=== PATIENT | female | born 1945 | race Caucasian/White ===

== ENCOUNTER 2017-04-17 10:49 | Day surgery (SDC) | payer MEDICARE, BC ==
[2017-04-17] MEDS ORDERED: SCOPOLAMINE PATCH TOP ONE (11:06)
[2017-04-17] MEDS ORDERED: LACTATED RINGERS 1,000 ML IV ONE (11:25)
[2017-04-17] MEDS ORDERED: fentaNYL 100 MCG/2 ML VIAL IVP ONE (12:32)
[2017-04-17] MEDS ORDERED: MIDAZOLAM 2 MG/2 ML VIAL IVP ONE (12:32)
[2017-04-17 13:49] VITALS: BP 110/64
== END 2017-04-17 10:50 | disposition home or self-care (01) ==
LOC: SDS 10:49
PROVIDERS: ATTEND Surgery
PROC: 0DJD8ZZ Inspection of Lower Intestinal Tract, Via Natural or Artificial Opening Endoscopic (ICD-10-PCS; principal; 2017-04-17 12:00)
DX: Z12.11 Encounter for screening for malignant neoplasm of colon (principal); K64.8 Other hemorrhoids; E78.5 Hyperlipidemia, unspecified; Z79.82 Long term (current) use of aspirin
CPT/HCPCS: G0121; J3490; J7120

== ENCOUNTER 2017-04-19 15:10 | Emergency (ER) | payer MEDICARE, BC ==
[2017-04-19 15:20] VITALS: BP 126/65
--- NOTE | 2017-04-19 15:51 | XRAY Report ---
EXAM: RIGHT WRIST RADIOGRAPHY EXAM DATE: 04/19/2017 03:25 PM. CLINICAL HISTORY: Injury. COMPARISON: None. TECHNIQUE: 4 views. FINDINGS: Bones: Comminuted intra-articular distal radius fracture with impaction and significant dorsal angula tion distal fragment measuring nearly 50 degrees. Probable nondisplaced ulnar styloid fracture. No ad ditional fracture. Mildly limited scaphoid view. Joints: Normal. No subluxations. Soft Tissues: Carpal alignment is preserved. No dislocation. IMPRESSION: Comminuted intra-articular distal radius fracture with moderate to severe angulation. Pro bable ulnar styloid fracture. [facility] Referring Provider Line: [phone] SITE ID: [id number]
[2017-04-19] MEDS ORDERED: BUPIVACAINE 0.5%-EPI 1:200000 PF 30 ML VIAL SUBQ ONE (16:15)
--- NOTE | 2017-04-19 16:17 | ED Physician Documentation ---
PD HPI UPPER EXT INJURY - Stated complaint Stated Complaint: RT ARM PX - Chief complaint Chief Complaint: Ext Problem - History obtained from History obtained from: Patient - History of Present Illness Type of injury: Other (Slip and fall on the ice this morning landing on her rear end with her arms behind her and injuring only her right wrist. No head or neck injury.) Review of Systems Constitutional: reports: Reviewed and negative Cardiac: reports: Reviewed and negative Respiratory: reports: Reviewed and negative PD PAST MEDICAL HISTORY - Past Medical History Past Medical History: Yes Cardiovascular: High cholesterol Respiratory: None Endocrine/Autoimmune: HyPOthyroidism GI: None : None HEENT: Chronic vision loss Psych: None Musculoskeletal: None Derm: None - Past Surgical History Past Surgical History: Yes Ortho: Other Neuro: Other - Present Medications Home Medications: Ambulatory Orders Medication Instructions Recorded Confirmed Lovastatin 40 mg PO DAILY 04/16/17 04/19/17 - Allergies Allergies/Adverse Reactions: Allergies Allergy/AdvReac Type Severity Reaction Status Date / Time No Known Drug Allergies Allergy Verified 04/19/17 15:20 - Social History Does the pt smoke?: No Smoking Status: Never smoker Does the pt drink ETOH?: Yes Does the pt have substance abuse?: No - Immunizations Immunizations are current?: Yes - POLST Patient has POLST: No PD ED PE NORMAL - Vitals Vital signs reviewed: Yes - General General: Alert and oriented X 3, No acute distress - Neck Neck: Supple, no meningeal sign, No bony TTP - Extremities Extremities: Other (Tender to R wrist with dorsal deformity. NVI in hand. Elbow NTTTP.) - Neuro Neuro: Alert and oriented X 3, Normal speech Results - Vitals Vitals: Vital Signs - 24 hr 04/19/17 15:15 Temperature 37.4 C Heart Rate 55 L Respiratory 18 Rate Blood Pressure 126/65 O2 Saturation 99 Oxygen O2 Source Room air - Rads (name of study) R wrist 4v Radiology: EMP read contemporaneously (Comminuted intra-articular distal radius fracture with moderate to severe angulation and a probable ulnar styloid fracture.) Procedures - Splint (location) R wrist Splint applied by: Physician Type of splint: Fiberglass, Long arm, Sugar tong Other: Patient tolerated well, No complications, Neurovascular intact - Reduction Body part reduced: Right, Wrist Fracture or dislocation: Fracture dislocation Anesthesia: Hematoma block, Lidocaine (enter cc) (8ml) Reduction aftercare: NV intact, Alignment improved, Splint applied, Sling Departure - Departure Disposition: 01 Home, Self Care Clinical Impression: Colles' fracture Qualifiers: Encounter type: initial encounter Fracture type: closed Laterality: right Qualified Code(s): S52.531A - Colles' fracture of right radius, initial encounter for closed fracture Condition: Good Record reviewed to determine appropriate education?: Yes Instructions: ED Fx Forearm Radius Ulna Redu Requ Follow-Up: [facility] [Provider Group] - Within 1 week Discharge Date/Time: 04/19/17 17:39
[2017-04-19] MEDS ORDERED: LIDOCAINE 1%-EPI 1:100000 20 ML MDV ONE (16:32)
--- NOTE | 2017-04-19 17:27 | XRAY Report ---
EXAM: RIGHT FOREARM RADIOGRAPHY EXAM DATE: 04/19/2017 05:16 PM. CLINICAL HISTORY: Post reduction. COMPARISON: Send a wrist. TECHNIQUE: 2 views. FINDINGS: Cast obscures detail. Impaction of the distal radius fracture has improved. Moderate to severe angula tion has slightly improved, now measuring approximately 34 degrees. Normal elbow joint alignment. IMPRESSION: Improved impaction of the distal radius fracture with slightly improved angulation althou gh still moderate. [facility] Referring Provider Line: [phone] SITE ID: [id number]
== END 2017-04-19 17:39 | disposition home or self-care (01) ==
LOC: ED 15:10
DX: S52.531A Colles' fracture of right radius, initial encounter for closed fracture (principal); W00.0XXA Fall on same level due to ice and snow, initial encounter; E03.9 Hypothyroidism, unspecified; E78.00 Pure hypercholesterolemia, unspecified
CPT/HCPCS: 25605; 99283

== ENCOUNTER 2017-04-26 07:12 | Day surgery (SDC) | payer MEDICARE, BC ==
[2017-04-26] MEDS ORDERED: LACTATED RINGERS 1,000 ML IV ONE (07:18)
[2017-04-26] MEDS ORDERED: ceFAZolin 2 GM/50 ML 2 GM/50 ML BAG IV ONE (07:25)
[2017-04-26] MEDS ORDERED: ONDANSETRON 4 MG/2 ML VIAL ONE (07:49)
[2017-04-26] MEDS: SCOPOLAMINE PATCH TOP ONE ×2 (07:51→07:52)
[2017-04-26] MEDS ORDERED: CELECOXIB 100 MG CAPSULE PO ONE (08:29)
[2017-04-26] MEDS ORDERED: BUPIVACAINE 0.25% PF 30 ML VIAL SUBQ ONE ×2 (09:59→10:48)
[2017-04-26] MEDS ORDERED: LIDOCAINE 1% 50 ML MDV SUBQ ONE ×2 (09:59→10:48)
[2017-04-26] MEDS ORDERED: ROCURONIUM 50 MG/5 ML VIAL IVP ONE (10:48)
[2017-04-26] MEDS ORDERED: LIDOCAINE-MPF 2% 5 ML VIAL IM ONE (10:48)
[2017-04-26] MEDS ORDERED: fentaNYL 100 MCG/2 ML VIAL IVP ONE (10:48)
[2017-04-26] MEDS ORDERED: PROPOFOL 200 MG/20 ML VIAL IVP ONE (10:48)
[2017-04-26] MEDS ORDERED: ACETAMINOPHEN 1,000 MG/100 ML 100 ML IV ONE (10:48)
[2017-04-26] MEDS ORDERED: ePHEDrine 50 MG/ML AMP IVP ONE (10:48)
[2017-04-26] MEDS ORDERED: KETOROLAC 30 MG/ML VIAL IVP ONE (10:48)
[2017-04-26 13:10] VITALS: BP 135/60
--- NOTE | 2017-04-26 18:17 | OPERATIVE REPORT ---
DATE OF SERVICE: 04/26/2017 Physician: Yumiko Love MD PREOPERATIVE DIAGNOSIS: Comminuted intra-articular and displaced right distal radius fracture. POSTOPERATIVE DIAGNOSIS: Comminuted intraarticular and displaced right distal radius fracture. PROCEDURE PERFORMED: Open reduction internal fixation of right distal radius fracture. OPERATING SURGEON: Yumiko Love MD ANESTHESIA: General. INDICATIONS FOR PROCEDURE: Ludmila is a 71-year-old female status post a ground level fall causing a comminuted and an unstable closed intra-articular right distal radial fracture. A closed reduction was done in the emergency room, which was unsatisfactory, with the fracture falling back into its same angulated and comminuted, shortened position. Recommendation in clinic was that the patient undergo operative treatment with open reduction internal fixation. FINDINGS AT SURGERY: The patient's fracture was indeed found to be very unstable and highly comminuted with a large void in the metaphyseal area and dorsal comminution. The patient's bone density was very poor. DESCRIPTION OF OPERATIVE PROCEDURE: The patient was taken to the operating room, given a general anesthetic. She was positioned supine. A tourniquet was placed on her arm. Her forearm and hand were sterilely prepped and draped in standard fashion. Under tourniquet control at 200 mmHg, a 3-1/2 inch incision was made on the radial volar aspect of the wrist directly superficial to the flexor carpi radialis tendon. The incision was deepened down to that tendon sheath. The tendon was retracted and the incision deepened below that down to the volar capsule where there was a rent in the capsule from the fracture and hemorrhagic tissues. The pronator quadratus was reflected back, exposing the fracture line and the distal radius. The flexor carpi radialis was divided at the fracture level to allow exposure of the radial styloid and for reduction. The reduction was difficult to obtain. Ultimately, a volar DVR plate was applied with a screw in the distal radius in the oblong hole and positioned so that appropriate screws and smooth pegs could be applied to support a reduction. With this plate in place, it allowed an anatomic repositioning of fragments to the plate and with constant pressure on the dorsal radius there was some molding and improved reduction that was gained, and appropriate screws and smooth pegs were then inserted distally with the dorsal cortex of the radius essentially nonsupportive and comminuted; the best it could be achieved were limited screws and pegs. The fixation gain was a locking construct that seemed stable and the wrist was ranged in surgery in flexion, extension multiple times to ensure that the construct was stable enough and it passed the test. The wrist incision was irrigated thoroughly and the tourniquet was deflated. There was minimal bleeding. Closure was with 0 Vicryl and 2-0 Vicryl interrupted in the substance of the pronator quadratus, 2-0 Vicryl closure of subcutaneous tissue and Monocryl 3-0 closure of skin. Sterile dressings were applied and prior to sterile dressings the intra-articular area was infiltrated with Marcaine and lidocaine. After this, a well-padded sugar-tong splint was applied and the patient was taken to the recovery room in stable condition. ESTIMATED BLOOD LOSS: Minimal. COMPLICATIONS: None. SPONGE AND NEEDLE COUNTS: Correct. TD: 04/26/2017 18:15
== END 2017-04-26 07:13 | disposition home or self-care (01) ==
LOC: SDS 07:12
PROVIDERS: ATTEND Orthopaedic Surgery
PROC: 0PSH04Z Reposition Right Radius with Internal Fixation Device, Open Approach (ICD-10-PCS; principal; 2017-04-26 08:15)
DX: S52.571A Other intraarticular fracture of lower end of right radius, initial encounter for closed fracture (principal); W18.30XA Fall on same level, unspecified, initial encounter; E78.5 Hyperlipidemia, unspecified; E03.9 Hypothyroidism, unspecified; Z79.82 Long term (current) use of aspirin
CPT/HCPCS: 25609; A9270; C1713; J0131; J0690; J3490; J7120

== ENCOUNTER 2018-03-19 13:59 | Outpatient (CLI) | payer MEDICARE, BC ==
--- NOTE | 2018-03-20 09:50 | DEXA Report ---
Reason: ENCTR FOR SREENING FOR OSTEOPOROSIS Procedure Date: 03/19/2018 Accession Number: [id number] / [id number] Procedure: DEX - Dexa Spine and/or Hip CPT Code: FULL RESULT: EXAM: Dexa Spine and/or Hip DATE: 03/19/2018 2:45 PM CLINICAL HISTORY: ENCTR FOR SREENING FOR OSTEOPOROSIS TECHNIQUE: Dual energy x-ray absorptiometry (DXA) was performed on a [employer] System. Regions measured are the AP Spine, femoral neck, and if needed forearm. COMPARISON: None. In accordance with the International Society for Clinical Densitometry (ISCD) guidelines, data from previous exams may be reanalyzed using current recommendations and techniques. This is done to allow a more accurate basis for comparison with the current study. FINDINGS: The data for the lumbar spine is as follows: BMD (g/cm/cm) T-SCORE Z-SCORE REGION L1 0.699 -3.6 -1.2 L2 0.746 -3.8 -1.4 L3 0.767 -3.6 -1.2 L4 0.798 -3.4 -0.9 TOTAL 0.756 -3.5 -1.1 NOTE: All evaluable vertebrae are used for classification The data for the hip is as follows: BMD (g/cm/cm) T-SCORE Z-SCORE REGION Neck 0.757 -2.0 0.2 TOTAL 0.674 -2.7 -0.6 NOTE: The femoral neck or total proximal femur, whichever is lowest, is used for classification. IMPRESSION: THE WHO CLASSIFICATION BASED ON THE INTERNATIONAL REFERENCE STANDARD IS OSTEOPOROSIS. THE FRACTURE RISK IS HIGH. RECOMMENDATION: Patients with diagnosis of osteoporosis or osteopenia should have regular bone mineral density assessment. For those eligible for Medicare, routine testing is allowed once every 2 years. Testing frequency can be increased for patients who have rapidly progressing disease or for those who are receiving medical therapy to restore bone mass. COMMENT: World Health Organization (WHO) definitions for osteoporosis and osteopenia: NORMAL BMD: T-score at -1.0 or higher, fracture risk is low OSTEOPENIA BMD: T-score between -1.0 and -2.5, fracture risk is increased. OSTEOPOROSIS BMD: T-score at -2.5 or lower, fracture risk is high. National Osteoporosis Foundation recommends: 1. Obtain adequate dietary calcium (at least 1200 mg per day) and vitamin D (400-800 international units per day). 2. Participate, as appropriate, in regular weightbearing and muscle-strengthening exercise. 3. Avoid tobacco use and reduce alcohol and caffeine intake. 4. For more detailed information see the website at www.NOF.org.
== END 2018-03-19 14:00 | disposition home or self-care (01) ==
LOC: DI 13:59
PROVIDERS: ATTEND Internal Medicine
DX: M81.0 Age-related osteoporosis without current pathological fracture (principal)
CPT/HCPCS: 77080

== ENCOUNTER 2018-04-29 14:15 | Outpatient (CLI) | payer MEDICARE, BC ==
--- NOTE | 2018-04-30 08:48 | Mammography Report ---
Reason: ROUTINE MAMMO Procedure Date: 04/29/2018 Accession Number: [id number] / [id number] Procedure: ADDIE - Screening Mammo w/Rodolfo CPT Code: FULL RESULT: EXAM: Screening Mammo w/Rodolfo DATE: 04/29/2018 2:39 PM CLINICAL HISTORY: Screening encounter. Self reported history of 30 years of hormone therapy. TECHNIQUE: Bilateral CC and MLO views were obtained. COMPARISON: 11/12/2015 through 01/09/2012. FINDINGS: The breasts demonstrate heterogeneously dense fibroglandular parenchyma bilaterally. No suspicious masses, clustered microcalcifications, or regions of architectural distortion are identified. IMPRESSION: Negative examination RECOMMENDATION: Routine annual screening unless otherwise clinically indicated. BIRADS CATEGORY 1: Negative STANDARD QUALIFYING STATEMENTS: 1. This examination was not reviewed with the aid of Computer-Aided Detection (CAD). 2. A negative or benign imaging report should not delay biopsy if clinically suspicious findings are present. Consider surgical consultation if warrented. More than 5% of cancers are not identified by imaging. 3. Dense breasts may obscure an underlying neoplasm. 4. This examination was reviewed with the aid of 3D breast imaging (tomosynthesis).
== END 2018-04-29 14:16 | disposition home or self-care (01) ==
LOC: DI 14:15
PROVIDERS: ATTEND Internal Medicine
DX: Z12.31 Encounter for screening mammogram for malignant neoplasm of breast (principal)
CPT/HCPCS: 77063; 77067

== ENCOUNTER 2019-05-10 14:52 | Emergency (ER) | payer MEDICARE, BC ==
--- NOTE | 2019-05-10 14:59 | ED Physician Documentation ---
PD HPI UPPER EXT INJURY - Stated complaint Stated Complaint: LT THUMB LAC - History obtained from History obtained from: Patient - History of Present Illness Location: Left, Finger (dorsumof thumb) Type of injury: Laceration (She is cutting banana with the knife and it slipped and she lacerated the dorsum of her left thumb. No numbness or weakness. She has had ongoing bleeding however despite direct pressure.) Where injury occurred: Home Timing - onset: Today Timing - details: Abrupt onset, Still present (some bleeding still) Improved by: Rest Worsened by: Moving, Palpating Review of Systems Neurologic: denies: Focal weakness, Numbness PD PAST MEDICAL HISTORY - Past Medical History Cardiovascular: High cholesterol, Murmur Respiratory: None Endocrine/Autoimmune: HyPOthyroidism GI: None : None HEENT: Chronic vision loss, Chronic hearing loss Psych: None Musculoskeletal: Osteoporosis, Osteopenia Derm: None - Past Surgical History Past Surgical History: Yes General: Appendectomy Ortho: Other Neuro: Other HEENT: Tonsil/Adenoidectomy - Present Medications Home Medications: Ambulatory Orders Medication Instructions Recorded Confirmed Lovastatin 40 mg PO DAILY 04/16/17 04/26/17 Aspirin [Aspirin EC] 81 mg PO DAILY 04/25/17 04/26/17 Calcium/Magnesium/Vitamin D3 2 each PO DAILY 04/25/17 04/26/17 [Gordy-Mag Complex 300-150 mg Tab] Cholecalciferol (Vitamin D3) 1,000 unit PO DAILY PM 04/25/17 04/26/17 [Vitamin D3] EPINEPHrine [Epipen 2-Iain] 0.3 mg IJ ONCE 04/25/17 04/25/17 L. Acidophilus/L. Rhamnosus 1 each PO DAILY 04/25/17 04/26/17 [Probiotic 15 Billion Cell Cap] Multivitamin [Multiple Vitamins] 1 each PO DAILY 04/25/17 04/26/17 Amoxicillin Chew [Amoxicillin] 125 mg PO BID 04/26/17 04/26/17 - Allergies Allergies/Adverse Reactions: Allergies Allergy/AdvReac Type Severity Reaction Status Date / Time No Known Drug Allergies Allergy Verified 05/10/19 15:01 - Social History Does the pt smoke?: No Smoking Status: Never smoker Does the pt drink ETOH?: Yes Does the pt have substance abuse?: No - Immunizations Immunizations are current?: Yes - POLST Patient has POLST: No PD ED PE NORMAL - Vitals Vital signs reviewed: Yes - General General: Alert and oriented X 3, No acute distress, Well developed/nourished - Derm Derm: Normal color, Warm and dry - Extremities Extremities: Other (Dorsum left thumb with a longitudinal laceration 1-1/2 cm over the IP joint. It does not involve the nailbed. There is no involvement of the tendon. She has good full extension against resistance and normal sensation at the tip. With flexion it does open and there is still some mild ongoing bleeding. No foreign bodies noted.) - Neuro Neuro: No motor deficit, No sensory deficit Results - Vitals Vitals: Vital Signs - 24 hr 05/10/19 15:01 Temperature 36.9 C Heart Rate 63 Respiratory 16 Rate Blood Pressure 123/56 L O2 Saturation 100 Oxygen O2 Source Room air Procedures - Laceration (location) left thumb Length in cm: 1.5 Wound type: Linear, Into subcut fat, Clean Neurovascular status: Sensory intact, Motor intact, Vascular intact Tendon involvement: Tendon intact. No: Tendon Injury Anesthesia: Lidocaine 1% Wound Preparation: Irrigated copiously NS, Wound explored, To the base. No: FB identified Skin layer closure: Nylon, Running, Size #-0 - enter number (5), Sutures - enter # (6) Other: Patient tolerated well, No complications, Neurovascular intact, Dressing applied, Tetanus booster given. No: Tetanus UTD Complexity: Simple PD MEDICAL DECISION MAKING - ED course Complexity details: considered differential (Laceration over the IP joint dorsal ly of the thumb and it does open with range of motion. Discussed attempting Dermabond and Steri-Strips and decreased motion versus sutures. It still has a little bit of bleeding. We opted on sutures.), d/w patient Departure - Departure Disposition: 01 Home, Self Care Clinical Impression: Laceration of thumb Qualifiers: Encounter type: initial encounter Damage to nail status: without damage Foreign body presence: without foreign body Laterality: left Qualified Code(s): S61.012A - Laceration without foreign body of left thumb without damage to nail, initial encounter Condition: Stable Record reviewed to determine appropriate education?: Yes Instructions: ED Laceration Hand Follow-Up: DEMAR KELLY ARNP [Primary Care Provider] - Comments: It is okay to wash and shower. Clean off the wound twice a day with soap and water, or peroxide and water. Apply some antibiotic ointment to it to keep it moist. Also to watch for signs of infection such as purulence, redness or increasing pain. Return to your primary care or the ER at the specified time for suture removal. Suture removal 8 to 10 days Discharge Date/Time: 05/10/19 15:41
[2019-05-10 15:03] VITALS: BP 123/56
[2019-05-10] MEDS ORDERED: BACITRACIN ZINC OINT 1 PACKET TOP STA (15:26)
[2019-05-10] MEDS ORDERED: TETANUS/DIPHTHERIA/PERTUSSIS 0.5 ML SYRINGE IM ONE (15:26)
== END 2019-05-10 15:41 | disposition home or self-care (01) ==
LOC: ED 14:52
DX: S61.012A Laceration without foreign body of left thumb without damage to nail, initial encounter (principal); W26.0XXA Contact with knife, initial encounter; Y93.G1 Activity, food preparation and clean up; Y92.009 Unspecified place in unspecified non-institutional (private) residence as the place of occurrence of the external cause
CPT/HCPCS: 12001; 90471; 90715; 99283; A9270

== ENCOUNTER 2020-05-14 09:48 | Outpatient (CLI) | payer MEDICARE, BC ==
--- NOTE | 2020-05-14 13:16 | XRAY Report ---
PROCEDURE: Hand 3 View BILAT INDICATIONS: OSTEOPOROSIS, PAIN OF HANDS, ARTHRITIS OF KNEES TECHNIQUE: 3 views of the hand(s) acquired. COMPARISON: None FINDINGS: Bones: No fractures or dislocations. No suspicious bony lesions. Distal left radial ORIF is presen t. Bones are relatively well mineralized. Right: There is subluxation flexion deformity at the fifth MCP and more severe PIP joints. Mild IP de generative narrowing is present in these areas. In addition, there is moderate first CMC degenerative narrowing. Moderate to severe radiocarpal narrowing and scattered minimal to mild IP narrowing is pr esent. No distinct erosions. Left: Mild first CMC as well as moderate radiocarpal narrowing is present. There are minimal scattere d IP areas of degenerative narrowing. No distinct erosions. Soft tissues: No suspicious soft tissue calcifications. IMPRESSION: 1. Flexion deformities most suggestive of arthritic change in the left fifth digit as above. 2. Bilateral scattered IP and first CMC arthritic narrowing suggestive osteoarthritis. Reviewed by: Lorie Mar MD on 05/14/2020 1:15 PM PDT Approved by: Lorie Mar MD on 05/14/2020 1:15 PM PDT Station ID: [id number]
--- NOTE | 2020-05-14 13:24 | XRAY Report ---
PROCEDURE: Knee 3 View BILAT INDICATIONS: OSTEOPOROSIS, PAIN OF HANDS, ARTHRITIS OF KNEES TECHNIQUE: 3 views of the bilateral knee(s) were acquired. COMPARISON: None. FINDINGS: Bones: No fractures or dislocations. There are serpiginous area of sclerosis within the distal right femur. No priors are available for comparison. There is bilateral mild to moderate medial as well as lateral, lateral greater than medial, compartme nt narrowing. Mild to moderate patellofemoral compartment narrowing is present. There are no erosions . Minimal periarticular osteophytes are present. Soft tissues: Mild bilateral effusions. No suspicious soft tissue calcifications. IMPRESSION: 1. Mild to moderate tricompartmental degenerative change as above suggestive of arthritis. 2. Serpiginous calcifications within the distal right femur suggestive of enchondroma. However, no pr iors are available for comparison. If this area demonstrates pain or other clinical concern, further evaluation with MRI is recommended. Otherwise, 6 month interval x-ray follow-up is recommended. Reviewed by: Lorie Mar MD on 05/14/2020 1:22 PM PDT Approved by: Lorie Mar MD on 05/14/2020 1:22 PM PDT Station ID: [id number]
--- NOTE | 2020-05-14 13:27 | DEXA Report ---
PROCEDURE: Dexa Spine and/or Hip INDICATIONS: OSTEOPOROSIS TECHNIQUE: Dual energy x-ray absorptiometry (DXA) was performed on a [employer] System. Regions measur ed are the AP Spine, femoral neck, and if needed forearm. COMPARISON: None. FINDINGS: Lumbar Spine: Bone Mineral Density 0.705 g/cm/cm,T score -4.0, osteoporosis Left Hip: Bone Mineral Density 0.719 g/cm/cm,T score -2.3, severe osteopenia Left Femoral Neck: Bone Mineral Density 0.766 g/cm/cm, T score -2.0, moderate to severe osteopenia (T score greater or equal to -1.0: NORMAL) (T score from -1.1 to -2.4: OSTEOPENIA) (T score less than or equal to -2.5 to: OSTEOPOROSIS) Impression: Severe osteoporosis within the lumbar spine with moderate to severe osteopenia in the lef t hip and femoral neck. Patients with diagnosis of osteoporosis or osteopenia should have regular bone mineral density assess ment. For those eligible for Medicare, routine testing is allowed once every 2 years. Testing frequ ency can be increased for patients who have rapidly progressing disease or for those who are receivin g medical therapy to restore bone mass. Reviewed by: Lorie Mar MD on 05/14/2020 1:25 PM PDT Approved by: Lorie Mar MD on 05/14/2020 1:25 PM PDT Station ID: [id number]
== END 2020-05-14 09:49 | disposition home or self-care (01) ==
LOC: DI 09:48
PROVIDERS: ATTEND Nurse Practitioner Family
DX: M81.0 Age-related osteoporosis without current pathological fracture (principal); M17.0 Bilateral primary osteoarthritis of knee; M79.641 Pain in right hand; M79.642 Pain in left hand; M19.042 Primary osteoarthritis, left hand; M19.041 Primary osteoarthritis, right hand

== ENCOUNTER 2020-06-01 13:16 | Outpatient (CLI) | payer MEDICARE, BC ==
--- NOTE | 2020-06-01 16:54 | Ultrasound Report ---
PROCEDURE: Pelvic w/Transvaginal INDICATIONS: ABD PAIN TECHNIQUE: Real-time scanning was performed of the pelvic organs, with image documentation. Additional endovagi nal scanning was necessary due to incomplete visualization of the adnexal and endometrial structures by transabdominal scanning. COMPARISON: No prior pelvic CT, pelvic MRI, or pelvic ultrasound is available for review.. FINDINGS: No pathologic free abdominal or pelvic fluid. Uterus: Uterus is mildly enlarged in size for postmenopausal 75-year-old patient at 4.7 x 5.8 x 8.4 cm. The endometrium measures 2 mm in combined thickness. Endometrial calcifications are present, pun ctate, and the endometrial canal is not well visualized in areas due to shadowing from fibroids and u terine calcifications. The left-sided fibroid measures up to 4.3 cm, the right-sided fibroid measures up to 3.1 cm. The fundal fibroid measures up to 2.6 cm. Calcifications are present on the left and f undal area with shadowing reducing quality of visualization. Ovaries: What appears to be the left ovary measures 1.8 x 1.3 x 2.1 cm. The right ovary measures 1.3 x 1.0 x 1.3 cm. There is an unexpected finding of what appears to be multiple pelvic masses without clear visualizati on of the origin of these solid appearing structures, and adjacent to the left ovary is a mass or non peristalsing bowel structure. IMPRESSION: Quality of visualization is quite limited, especially in areas where visualization is obscured by sha dowing from uterine fibroids. A definite endometrial mass is not seen but the shadowing precludes mack ar visualization of the entire endometrial canal. Additionally, exophytic or free pelvic masses unrel ated to the ovaries and uterus appear present, difficult to clearly delineate, but solid in appearanc e and potentially a manifestation of malignancy. Therefore abdominal/pelvic CT scanning with oral and intravenous contrast is recommended in the near term for more accurate visualization. Depending on the clinical status additional imaging utilizing g ynecological malignancy protocol MR scanning may become necessary subsequently. Reviewed by: Rome Bill MD on 06/01/2020 4:53 PM PDT Approved by: Rome Bill MD on 06/01/2020 4:53 PM PDT Station ID: [id number]
== END 2020-06-01 13:17 | disposition home or self-care (01) ==
LOC: DI 13:16
PROVIDERS: ATTEND Nurse Practitioner Family
DX: D25.9 Leiomyoma of uterus, unspecified (principal); N85.8 Other specified noninflammatory disorders of uterus; R19.00 Intra-abdominal and pelvic swelling, mass and lump, unspecified site

== ENCOUNTER 2020-06-09 10:45 | Outpatient (CLI) | payer MEDICARE, BC ==
[2020-06-09] MEDS ORDERED: IOPAMIDOL-300 100 ML VIAL ONE (10:48)
[2020-06-09] MEDS ORDERED: IOPAMIDOL-300 50 ML VIAL ONE (10:48)
[2020-06-09] MEDS ORDERED: IOPAMIDOL-300 100 ML VIAL IVP ONE (13:30)
[2020-06-09] MEDS ORDERED: IOPAMIDOL-300 50 ML VIAL PO ONE (13:31)
--- NOTE | 2020-06-09 15:00 | CT Report ---
PROCEDURE: Abdomen/Pelvis W INDICATIONS: PELVIC MASS CONTRAST: IV CONTRAST: Isovue 300 ml: 100 PO CONTRAST: Isovue 300 ml50 TECHNIQUE: After the administration of contrast, 5 mm thick sections acquired from the diaphragms to the sym physis. 5 mm thick coronal and sagittal reformats were acquired. For radiation dose reduction, the following was used: automated exposure control, adjustment of mA and/or kV according to patient size . COMPARISON: None. FINDINGS: Image quality: Excellent. ABDOMEN: Lung bases: Lung bases are clear. Heart size is normal. Solid organs: Liver and spleen are normal in size and enhancement. A hepatic cyst is present at the right posterior hepatic segment. Gallbladder appears normal Biliary system is non dilated. Pancrea s enhances normally. No adrenal nodules. Kidneys demonstrate normal size and enhancement on the rig ht, without hydronephrosis. In contrast, on the left, there is a large malignant-appearing mass exop hytic from the mid and lower aspect of the left kidney, with axial dimension as it emanates from the kidney at approximately 8.1 x 11.1 cm, projecting with an exophytic component beyond the renal capsul e at the middle third of the mass more inferiorly, where it measures up to 13.1 cm AP and 8.2 cm feliz sverse. Then this large mass tapers into the iliac fossa on the left, terminating at approximately th e junction of the upper and middle thirds of the iliac fossa. The maximal craniocaudad dimension of t his lesion is 13.5 cm. Peritoneum and bowel: Bowel loops demonstrate normal wall thickness and caliber. No free fluid or a ir. Nodes and vessels: No retroperitoneal or mesenteric adenopathy by size criteria. Aorta and inferior vena cava are normal in size. Miscellaneous: No ventral hernias. PELVIS: Genitourinary: Bladder wall thickness is normal. The uterus is lobulated, with what appears to be m ultiple uterine fibroids a number of which contain significant dense internal calcifications. Portion s of the small bowel in this area note is made of colonic obstipation within the pelvis both on the r ight than the left. Unopacified bowel loops are moderate in severity within the lower pelvis at the m idline. Miscellaneous: No inguinal hernias or adenopathy. Colonic obstipation extends from the abdomen into the pelvis, moderate in severity. Bones: No suspicious bony lesions. No vertebral body compression fractures. IMPRESSION: 1. There is a large exophytic mass emanating from the mid and lower thirds of the left kidney, showin g several areas of anterior penetration through the hepatic capsule into the immediate adjacent retro peritoneal fat. This mass is characteristic in appearance for representing malignant renal cell neopl asm, presumably adenocarcinoma. 2. As was previously the case during ultrasound scanning of the pelvis 06/01/2020 the uterus is seen to be distorted by multiple lobulated uterine fibroids some of which contain dense internal calcificati ons. The exact anatomy of the uterus is difficult to establish given the lobulation but a definite ma lignant mass within the pelvis is not seen. There are, however, multiple unopacified small bowel and several colonic bowel loops in this area superimposed. Colonic obstipation also is present and the re sulting heterogeneity of structures within the pelvis renders accurate assessment for "drop metastasi s" very limited. Nuclear medicine PET/CT scanning may be warranted to more accurately assess for meta static disease related to the very large left renal cell carcinoma. Reviewed by: Rome Bill MD on 06/09/2020 2:59 PM PDT Approved by: Rome Bill MD on 06/09/2020 2:59 PM PDT Station ID: [id number]
== END 2020-06-09 10:46 | disposition home or self-care (01) ==
LOC: DI 10:45
PROVIDERS: ATTEND Nurse Practitioner Family
DX: N28.89 Other specified disorders of kidney and ureter (principal); D25.9 Leiomyoma of uterus, unspecified; K59.00 Constipation, unspecified; R19.00 Intra-abdominal and pelvic swelling, mass and lump, unspecified site
CPT/HCPCS: 74177; Q9967; 82565

== ENCOUNTER 2020-06-09 12:34 | Outpatient (CLI) | payer MEDICARE, BC ==
[2020-06-09 12:55] LABS: CREATININE 0.4 mg/dL (0.4-1.0)
== END 2020-06-09 12:35 | disposition home or self-care (01) ==
LOC: LAB 12:34
PROVIDERS: ATTEND Nurse Practitioner Family
DX: R19.00 Intra-abdominal and pelvic swelling, mass and lump, unspecified site (principal)
CPT/HCPCS: 82565

== ENCOUNTER 2020-08-30 07:32 | Emergency (ER) | payer MEDICARE, BC ==
[2020-08-30 07:42] VITALS: BP 122/63
[2020-08-30] MEDS ORDERED: BUFFERED LIDOCAINE 10 ML SYRINGE SUBQ STA (08:46)
[2020-08-30] MEDS ORDERED: BACITRACIN ZINC OINT 1 PACKET TOP STA (08:47)
--- NOTE | 2020-08-30 09:19 | ED Physician Documentation ---
History of Present Illness - Stated complaint Stated Complaint: RT FINGER LAC - Chief complaint Chief Complaint: Laceration - History obtained from History obtained from: Patient - Additonal information Additional information: 74-year-old woman presents with laceration of right fifth finger that happened yesterday around 3 PM while trying to close an outdoor umbrella and cutting it on the metal. She is able to move her finger normally and has only minimal pain, but the finger sliced. Review of Systems Skin: reports: Laceration (s) PD PAST MEDICAL HISTORY - Past Medical History Cardiovascular: High cholesterol, Murmur Respiratory: None Endocrine/Autoimmune: HyPOthyroidism GI: None : None HEENT: Chronic vision loss, Chronic hearing loss Psych: None Musculoskeletal: Osteoporosis, Osteopenia Derm: None - Past Surgical History Past Surgical History: Yes General: Appendectomy Ortho: Other Neuro: Other HEENT: Tonsil/Adenoidectomy - Present Medications Home Medications: Ambulatory Orders Medication Instructions Recorded Confirmed Lovastatin 40 mg PO DAILY 04/16/17 04/26/17 Aspirin [Aspirin EC] 81 mg PO DAILY 04/25/17 04/26/17 Calcium/Magnesium/Vitamin D3 2 each PO DAILY 04/25/17 04/26/17 [Gordy-Mag Complex 300-150 mg Tab] Cholecalciferol (Vitamin D3) 1,000 unit PO DAILY PM 04/25/17 04/26/17 [Vitamin D3] EPINEPHrine [Epipen 2-Iain] 0.3 mg IJ ONCE 04/25/17 04/25/17 L. Acidophilus/L. Rhamnosus 1 each PO DAILY 04/25/17 04/26/17 [Probiotic 15 Billion Cell Cap] Multivitamin [Multiple Vitamins] 1 each PO DAILY 04/25/17 04/26/17 Amoxicillin Chew [Amoxicillin] 125 mg PO BID 04/26/17 04/26/17 - Allergies Allergies/Adverse Reactions: Allergies Allergy/AdvReac Type Severity Reaction Status Date / Time No Known Drug Allergies Allergy Verified 08/30/20 07:42 - Social History Does the pt smoke?: No Smoking Status: Never smoker Does the pt drink ETOH?: Yes Does the pt have substance abuse?: No - Immunizations Immunizations are current?: Yes - POLST Patient has POLST: No PD ED PE NORMAL - Vitals Vital signs reviewed: Yes - General General: Alert and oriented X 3, No acute distress, Well developed/nourished - HEENT HEENT: Atraumatic, PERRL, EOMI - Derm Derm: Normal color, Warm and dry, Other (2 cm superficial laceration to volar aspect of right fifth finger without tendon or joint involvement) Results - Vitals Vitals: Vital Signs - 24 hr 08/30/20 07:40 Temperature 36.4 C L Heart Rate 76 Respiratory 16 Rate Blood Pressure 122/63 O2 Saturation 100 Oxygen O2 Source Room air Procedures - Laceration (location) Finger right Length in cm: 2 Wound type: Linear, Flap, Superficial, Clean. No: Into muscle Neurovascular status: Sensory intact, Motor intact, Vascular intact Tendon involvement: Tendon intact Anesthesia: Lidocaine 1%, With bicarb Wound preparation: Irrigated copiously NS, Wound explored, To the base. No: FB identified Skin layer closure: Nylon, Size #-0 - enter number (6), Sutures - enter # (4) Other: Patient tolerated well, No complications, Neurovascular intact, Dressing applied, Tetanus UTD PD MEDICAL DECISION MAKING - ED course ED course: Laceration repaired without complication Impression 1 laceration of finger Departure - Departure Disposition: 01 Home, Self Care Condition: Good Instructions: ED Laceration All Comments: You are seen in the emergency department for laceration of your finger. Please return if you have any signs of infection as we discussed. Return if you have any new or worsening symptoms or other concerns. You need to have the stitches taken out in 14 days. Your tetanus was updated in April 2019.
== END 2020-08-30 09:40 | disposition home or self-care (01) ==
LOC: ED 07:32
DX: S61.216A Laceration without foreign body of right little finger without damage to nail, initial encounter (principal); W26.8XXA Contact with other sharp object(s), not elsewhere classified, initial encounter; Y93.89 Activity, other specified
CPT/HCPCS: 12001; 99281; 99282; A9270

== ENCOUNTER 2020-09-07 11:34 | Outpatient (CLI) | payer MEDICARE, BC ==
[2020-09-07] MEDS ORDERED: IOVERSOL 320 50 ML VIAL ONE (11:52)
[2020-09-07] MEDS ORDERED: IOVERSOL 320 100 ML VIAL IVP ONE ×2 (11:52→13:06)
[2020-09-07 12:18] LABS: ALBUMIN 4.2 g/dL (3.2-5.5); ALBUMIN/GLOBULIN RATIO 1.6 (1.0-2.2); BILIRUBIN,TOTAL 0.8 mg/dL (0.2-1.0); CALCIUM 9.6 mg/dL (8.5-10.3); CREATININE 0.7 mg/dL (0.4-1.0); POTASSIUM 4.3 mmol/L (3.5-5.0); TOTAL PROTEIN 6.9 g/dL (6.7-8.2)
[2020-09-07] MEDS ORDERED: IOPAMIDOL-300 50 ML VIAL PO ONE (13:06)
--- NOTE | 2020-09-07 16:44 | CT Report ---
PROCEDURE: CHEST W INDICATIONS: CLEAR CELL CARCINOMA CONTRAST: IV CONTRAST: Optiray 320 ml: 100 PO CONTRAST: Optiray 320 ml50 TECHNIQUE: After the administration of intravenous contrast, images were acquired from the pulmonary apices to t he posterior costophrenic angles. Multiplanar MIP reformats were acquired. For radiation dose reduc tion, the following was used: automated exposure control, adjustment of mA and/or kV according to pa tient size. COMPARISON: CT abdomen pelvis 06/09/2020. Concurrent CT of the abdomen. FINDINGS: Image quality: Excellent. Lungs and pleura: There is mild dependent atelectasis bilaterally. In the left lower lobe, there is a pulmonary nodule measuring up to 0.5 cm on series 3 image 243. This appears increased in size from 0 .3 cm on the prior abdominal CT. A pleural based nodule anteriorly in the right middle lobe measures up to 0.3 cm on series 3 image 205. Small calcified nodules in the lower lobes are consistent with se quelae of old granulomatous disease. There is a small focus of mucus plugging in the right lower lob e on series 3 image 46. No suspicious No pleural effusions or pneumothorax. Central and peripheral a irways are patent and normal in caliber. Mediastinum: Heart size is normal. No pericardial effusion. No mediastinal or hilar adenopathy by size criteria. Thoracic aorta and central pulmonary arteries are normal in size. Esophagus is colette l in caliber. There is a small hiatal hernia. Bones and chest wall: No suspicious bony lesions. No vertebral body compression fractures. No axil leilani or supraclavicular adenopathy by size criteria. The thyroid is heterogeneous with a small calci fied nodule in the right lobe measuring 0.3 cm. Abdomen: Visualized upper abdomen demonstrates a small hypodensity in the visualized right hepatic l obe which is too small to characterize but statistically likely represents a cyst. The left kidney is surgically absent. Postsurgical changes are noted within the retroperitoneum. IMPRESSION: 1. Left lower lobe 0.5 cm nodule appears increased in size compared to the prior CT. The finding is s uspicious for metastatic disease. 2. Small indeterminate right middle lobe pleural-based nodule. Recommend attention on follow-up. Reviewed by: Nemesio Arce MD on 09/07/2020 4:42 PM PDT Approved by: Nemesio Arce MD on 09/07/2020 4:42 PM PDT Station ID: [id number]
--- NOTE | 2020-09-07 17:26 | CT Report ---
PROCEDURE: ABDOMEN W INDICATIONS: CLEAR CELL CARCINOMA CONTRAST: IV CONTRAST: Optiray 320 ml: 100 PO CONTRAST: Optiray 320 ml50 TECHNIQUE: After the administration of oral and intravenous contrast, 5 mm thick sections acquired from the diap hragms to the iliac crests. 5 mm thick coronal and sagittal reformats were acquired. For radiation dose reduction, the following was used: automated exposure control, adjustment of mA and/or kV accor ding to patient size. COMPARISON: CT abdomen pelvis 06/09/2020, concurrent CT chest. FINDINGS: Image quality: Excellent. Lung bases: There is a small left lower lobe on a nodule on series 4 image 8 measuring approximately 0.5 cm which appears slightly increased from 0.3 cm on the previous study. Heart size is enlarged. T here is a small hiatal hernia. Solid organs: There is a cyst within the inferior right hepatic lobe measuring up to 2.6 cm. Additio nal smaller low-density foci within the liver are redemonstrated which are too small to characterize but likely represent cysts. Biliary system is non dilated. Pancreas enhances normally. The left kidney and left adrenal gland are surgically absent. No discrete mass identified within the surgical bed. No right adrenal nodule. Right kidney demonstrates no hydronephrosis or discrete mass. Peritoneum and bowel: Visualized bowel loops appear normal in caliber. No free fluid or air. Nodes and vessels: No retroperitoneal or mesenteric adenopathy by size criteria. There are para-aort ic surgical clips within the retroperitoneum. Aorta and inferior vena cava are normal in size. Bones: No suspicious bony lesions. No vertebral body compression fractures. Miscellaneous: No ventral hernias. IMPRESSION: 1. Small left lower lobe nodule appears slightly increased in size compared to the prior study and is suspicious for metastatic disease. Recommend attention on follow-up. 2. No definite evidence of residual or recurrent disease in the abdomen. Reviewed by: Nemesio Arce MD on 09/07/2020 5:25 PM PDT Approved by: Nemesio Arce MD on 09/07/2020 5:25 PM PDT Station ID: [id number]
== END 2020-09-07 11:35 | disposition home or self-care (01) ==
LOC: DI 11:34
PROVIDERS: ATTEND Nurse Practitioner Adult Health
DX: C64.2 Malignant neoplasm of left kidney, except renal pelvis (principal); R10.9 Unspecified abdominal pain; R91.1 Solitary pulmonary nodule
CPT/HCPCS: 36415; 71260; 74160; 80053; Q9967

== ENCOUNTER 2020-10-12 12:45 | Outpatient (CLI) | payer MEDICARE, BC ==
--- NOTE | 2020-10-13 08:03 | Mammography Report ---
BILATERAL DIGITAL SCREENING MAMMOGRAM 3D/2D: 10/12/2020 CLINICAL: Routine screening. Comparison is made to exams dated: 04/29/2018 mammogram and 11/12/2015 mammogram - [facility]. The tissue of both breasts is heterogeneously dense. This may lower the sensitivity of christiano mography. There is a focal asymmetry with punctate calcifications in the left breast central to the nipple in t he retroareolar region. Finding is seen only on tomography. This is more prominent. No other significant masses, calcifications, or other findings are seen in either breast. IMPRESSION: INCOMPLETE: NEEDS ADDITIONAL IMAGING EVALUATION The focal asymmetry in the left breast is indeterminate. Additional views with possible ultrasound are recommended. This exam was interpreted at Station ID: [id number]. NOTE: For mammograms, a report in lay terms will be sent to the patient. Approximately 15% of breast malignancies will not be visualized mammographically. In the management of a palpable breast mass, a negative mammogram must not discourage biopsy of a clinically suspicious lesion. Electronically Signed By: Nico Brice M.D. slc/:10/12/2020 14:47:43 ACR BI-RADS Category 0: Incomplete 3340F PARENCHYMAL PATTERN: (D) - The breast(s) demonstrate(s) heterogeneously dense fibroglandular berry araiza. BI-RADS CATEGORY: (0) - 0 Mammo and [place] [id number] Immediate follow-up LATERALITY: (B)
== END 2020-10-12 12:46 | disposition home or self-care (01) ==
LOC: DI 12:45
DX: Z12.31 Encounter for screening mammogram for malignant neoplasm of breast (principal); R92.8 Other abnormal and inconclusive findings on diagnostic imaging of breast

== ENCOUNTER 2020-12-17 09:26 | Outpatient (CLI) | payer MEDICARE, BC ==
--- NOTE | 2020-12-20 10:16 | Mammography Report ---
UNILATERAL LEFT DIGITAL DIAGNOSTIC MAMMOGRAM 3D/2D: 12/17/2020 CLINICAL: Patient returns today to evaluate a focal asymmetry in the left breast. Comparison is made to exams dated: 10/12/2020 mammogram, 04/29/2018 mammogram, 11/12/2015 mammogram, and 11/10/2014 mammogram - [facility]. The tissue of left breast is heterogeneously de nse. This may lower the sensitivity of mammography. There is a focal asymmetry with dystrophic calcifications in the left breast central to the nipple in the retroareolar region. No other significant masses or calcifications are seen in the breast. IMPRESSION: INCOMPLETE: NEEDS ADDITIONAL IMAGING EVALUATION The focal asymmetry in the left breast has a differential diagnosis of fibroglandular tissue or a fib roadenoma and is indeterminate. A targeted ultrasound is recommended and will immediately follow. This exam was interpreted at Station ID: [id number]. NOTE: For mammograms, a report in lay terms will be sent to the patient. Approximately 15% of breast malignancies will not be visualized mammographically. In the management of a palpable breast mass, a negative mammogram must not discourage biopsy of a clinically suspicious lesion. Electronically Signed By: Nico Brice M.D. slc/:12/17/2020 10:46:15 ACR BI-RADS Category 0: Incomplete 3340F PARENCHYMAL PATTERN: (D) - The breast(s) demonstrate(s) heterogeneously dense fibroglandular parsebastiany jose g. BI-RADS CATEGORY: (0) - 0 Ultrasound [id number] Immediate follow-up LATERALITY: (B)
--- NOTE | 2020-12-20 10:16 | Ultrasound Report ---
LIMITED ULTRASOUND OF LEFT BREAST: 12/17/2020 CLINICAL: Patient returns today to evaluate a focal asymmetry in the left breast. Comparison is made to exams dated: 12/17/2020 mammogram, 10/12/2020 mammogram, 04/29/2018 mammogram, an d 11/12/2015 mammogram - [facility]. Real-time ultrasound of the left breast retroareolar was performed. Almeida scale images of the real-ti me examination were reviewed. There is a benign 0.7 cm oval area of fibroglandular tissue with a circumscribed margin in the left b reast central to the nipple in the retroareolar region. This oval area of fibroglandular tissue is i soechoic. This correlates with mammography findings. There are related micro calcifications. IMPRESSION: BENIGN There is no sonographic evidence of malignancy. Rounded area of fibroglandular tissue in the left retroareolar breast corresponding to the mammograph ic finding is benign. A 1 year screening mammogram is recommended. Exam findings were conveyed to the patient. This exam was interpreted at Station ID: [id number]. Electronically Signed By: Nico Brice M.D. slc/:12/17/2020 10:49:17 Ultrasound BI-RADS: 2 Benign BI-RADS CATEGORY: (2) - 2 RECOMMENDATION: (ANNUAL) - Recommend routine annual screening mammography. [id number] 1 year screening LATERALITY: (B)
== END 2020-12-17 09:27 | disposition home or self-care (01) ==
LOC: DI 09:26
PROVIDERS: ATTEND Nurse Practitioner Family
DX: R92.8 Other abnormal and inconclusive findings on diagnostic imaging of breast (principal)